=== PATIENT | female | born 1940 | race Caucasian/White ===

== ENCOUNTER 2016-07-19 15:47 | Outpatient (CLI) | payer MEDICARE, OTHER | END 2016-07-19 15:48 | disposition home or self-care (01) | DX: G47.33 Obstructive sleep apnea (adult) (pediatric) (principal) | CPT/HCPCS: 99213; G0463 ==

== ENCOUNTER 2017-03-21 15:40 | Outpatient (CLI) | payer MEDICARE, OTHER | END 2017-03-21 15:41 | disposition home or self-care (01) | LOC: SC 15:40 | PROVIDERS: ATTEND Nurse Practitioner Family | DX: G47.33 Obstructive sleep apnea (adult) (pediatric) (principal) | CPT/HCPCS: 99214; G0463; 99212 ==

== ENCOUNTER 2017-06-29 13:11 | Outpatient (CLI) | payer MEDICARE, OTHER | END 2017-06-29 13:12 | disposition home or self-care (01) | LOC: SC 13:11 | PROVIDERS: ATTEND Nurse Practitioner Family | DX: G47.33 Obstructive sleep apnea (adult) (pediatric) (principal) | CPT/HCPCS: 99214; G0463; 99212 ==

== ENCOUNTER 2018-06-12 12:38 | Outpatient (CLI) | payer MEDICARE, OTHER | END 2018-06-12 12:39 | disposition home or self-care (01) | LOC: SC 12:38 | PROVIDERS: ATTEND Nurse Practitioner Family | DX: G47.33 Obstructive sleep apnea (adult) (pediatric) (principal) | CPT/HCPCS: 99214; G0463; 99212 ==

== ENCOUNTER 2020-01-16 11:22 | Outpatient (CLI) | payer MEDICARE, OTHER ==
[2020-01-16 12:19] VITALS: BP 148/60
--- NOTE | 2020-01-16 12:19 | SLEEP CARE CONSULTATION ---
Information from patient questionnaire entered by Lorna Quinteros. I have reviewed and concur with the information entered by Lorna Quinteros. This document represents the service I personally performed and the decisions made by me, Yudelka Aleman, RN, MSN, ELECTRONIC SECURITY SPECIALIST. History of Present Illness Service Date and Time: 01/16/2020 1122 Previous diagnosis: Moderate, Obstructive Sleep Apnea-Hypopnea Syndrome AHI: 17.9 (in 2013) Reason for follow up: other (7 month with mask issues) Equipment type: CPAP Equipment obtained from: [employer] (getting supplies as needed) Mask style: Nasal Mask brand: Respironics (Dreamwear) Backup mask available: Yes (old mask) Last cushion change: 1st of month Prior sleep studies: Yes Year and Where: 2012 - [facility] Type of Sleep Study: Polysomnography CPAP Compliance Data - Data Reviewed with Patient Average duration of nightly device use: 9.4 Compliance rate %: 98 (180 days) Current pressure setting (cmH2O): 8-12 Humidity settin Average residual AHI: 0.6 Subjective Patient concerns: reports: mask leak noise (every time she turns she is waking to adjust mask and this also wakes her spouse). denies: aerophagia, mask discomfort, air blowing in eyes, condensation in mask/hose, nasal congestion, dry mouth, nose, throat, epistaxis, other Observed to snore while using device: No Current pressure setting perceived as: comfortable On therapy, patient: reports: sleeping better, awakening more refreshed, being more awake and alert during the day, more rested overall. denies: drowsiness while driving Initial [place] Sleepiness Scale score: 12 (in 2013) Current [place] Sleepiness Scale score: 0 Allergies and Home Medications Known drug allergies: Yes ( bees, IV iodine, tape, topical ointments) Home medication list reviewed: Yes (no changes stated) Review of Systems Review of systems same as previous: Yes Physical Exam Blood Pressure: 148/60 Cuff size: long Heart Rate: 69 O2 Saturation: 95 Height: 5 ft 3.5 in Weight: 203 lb Weight change since last visit: gained a few pounds Body Mass Index: 35.4 BMI Classification: Obese Impression and Plan 1. Obstructive Sleep Apnea-Hypopnea Syndrome, moderate, with good treatment compliance and good apnea control. On CPAP therapy, the patient has better sleep quality and is more rested overall. For her mask concerns, I showed her the headgear with arms and she would like to try. In addition, the cushion will be replaced with nasal cushions. She is to contact [facility] when she can obtain, if too far out in time she can consider out of pocket since current mask disrupting sleep. If she has not opened the mask package just recieved, she can see if [facility] will replace. Patient has gained weight and with discussion she would really like to lose weight and feels more motivated than at last visit. Currently patients BMI is 34.6 obesity class . Obesity increases the risk of apnea, CPAP pressure requirements and overall health risks especially cardiovascular and diabetes. Weight loss can be done with reducing portion size, reducing refined foods and balancing content with vegetables, fruit and protein. In addition tracking food intake will allow awareness of how to modify diet to achieve weight loss goals. Also eating more slowly will allow more awareness of food intake and enjoyment of food while assisting patient to modify intake at each meal. A diet consultation can be helpful in achieving optimal weight loss goals. The BMI chart was reviewed. The patient would like to reduce to 155 pounds bringing their BMI down to about 27. Patient encouraged to discuss their weight loss goals with their PCP and consider a referral to a supervisor print line. The patient's CPAP pressure range should accommodate some weight loss. Symptoms to report for additional pressure adjustment discussed. Patient's apnea severity and rationale for treatment to reduce apnea, improve sleep quality and reduce cardiovascular and cerebrovascular events was reviewed. I also reviewed the benefit of consistent device use of CPAP for hypertension. * Continue auto CPAP pressure at 8- 12 cmH2O * change mask headgear and cushion style * Notify me if snoring with mask or feeling that the pressure is too much or too little * Attempt to lose weight * Follow up with PCP for supervisor print line referral * Call this office if any problems using CPAP * Return for follow up in 1 year , or sooner if concerns arise Visit Type: In Office Time Spent with Patient (minutes): 30 Provider Statement: I spent 100% of the Face to Face Visit with the patient with greater than 50% spent counseling the patient and coordination of care.
== END 2020-01-16 11:23 | disposition home or self-care (01) ==
LOC: SC 11:22
PROVIDERS: ATTEND Nurse Practitioner Family
DX: G47.33 Obstructive sleep apnea (adult) (pediatric) (principal); E66.9 Obesity, unspecified; Z68.34 Body mass index [BMI] 34.0-34.9, adult
CPT/HCPCS: 99214; G0463; 99212

== ENCOUNTER 2021-01-19 08:58 | Outpatient (CLI) | payer MEDICARE, OTHER ==
[2021-01-19 09:51] VITALS: BP 135/66
--- NOTE | 2021-01-19 09:51 | SLEEP CARE CONSULTATION ---
Information from patient questionnaire entered by Teressa Fortune. I have reviewed and concur with the information entered by Teressa Fortune. This document represents the service I personally performed and the decisions made by me, Cecilia Medina ARNP. History of Present Illness Service Date and Time: 01/19/2021 0858 Previous diagnosis: Moderate, Obstructive Sleep Apnea-Hypopnea Syndrome AHI: 17.9 (in 2012) Reason for follow up: annual Equipment type: CPAP Equipment obtained from: [employer] (getting supplies as needed) Mask style: Nasal Backup mask available: No (will keep old mask when replaced) Last cushion change: 19 days ago Prior sleep studies: Yes Year and Where: 2012 - [facility] Type of Sleep Study: Polysomnography HPI additional information: TYRONE CUNHA was diagnosed to have moderate, AHI 17.9, obstructive sleep apnea-hypopnea syndrome and returned today for CPAP therapy annual follow-up. Sleep Study - Results Type of Sleep Study: Polysomnography Prior sleep studies: Yes Year and Where: [facility] CP[facility] Compliance Data - Data Reviewed with Patient Average duration of nightly device use: 9 hours 9 minutes Compliance rate %: 96 Current pressure setting (cmH2O): 8-12 Average residual AHI: 0.8 Central apnea: 0 Obstructive apnea: .7 Hypopnea: 0 Subjective Missed days of use due to: reports: other (smell in cpap for 1 week unable to use) Patient concerns: reports: dry mouth, nose, throat (dry throat, sometimes if she breathes through her mouth). denies: aerophagia, mask discomfort, air blowing in eyes, mask leak noise, condensation in mask/hose, nasal congestion, epistaxis, other Observed to snore while using device: No Current pressure setting perceived as: comfortable On therapy, patient: reports: sleeping better, awakening more refreshed, being more awake and alert during the day, more rested overall. denies: drowsiness while driving Initial [place] Sleepiness Scale score: 12 (in 2013) Current [place] Sleepiness Scale score: 10 Allergies and Home Medications Home medication list reviewed: Yes (Eliquis) Review of Systems Review of systems same as previous: Yes (no changes) Physical Exam Blood Pressure: 135/66 (left wrist) Cuff size: wrist Heart Rate: 68 O2 Saturation: 93 (on 2L/NC) Height: 5 ft 3.5 in Weight: 198 lb Weight change since last visit: 5 lb loss Body Mass Index: 34.5 BMI Classification: Obese Impression and Plan 1. Obstructive Sleep Apnea-Hypopnea Syndrome, moderate, with good treatment compliance and excellent apnea control. On CPAP therapy, the patient has better sleep quality and is more rested overall. Patient had an issue with a vinegar smell in her CPAP machine. She took it down to have it looked at by the DME and they replaced tubing and headgear. She cleaned the water chamber and then used it again. It had the smell again. She looked at the jug of distilled water and discovered it was vinegar. She then emptied, recleaned and put in distilled water. She has not had any odor issues since. Patient is very satisfied with current CPAP therapy and pressure settings. She has some occasional throat dryness possibly due to sleeping with mouth open. She was advised that she could switch to using a full face mask or chin strap if this should become more often and intrusive. She voiced understanding and agreement with plan. Patient has lost about 5 pounds. Currently patients BMI is 35.5. Patient is going to pulmonary therapy and has an appointment to meet with a dietitian to help with food choices. Obesity increases the risk of apnea, CPAP pressure requirements and overall health risks especially cardiovascular and diabetes. Thus patient is advised to continue to try to lose weight. The patient's CPAP pressure range should accommodate some weight loss. Symptoms to report for additional pressure adjustment discussed. Patient's apnea severity and rationale for treatment to reduce apnea, improve sleep quality and reduce cardiovascular and cerebrovascular events was reviewed. I also reviewed the benefit of consistent device use of CPAP for hypertension. * Continue auto CPAP pressure at 8-12 cmH2O * Notify me if snoring with mask or feeling that the pressure is too much or too little * Continue to try to lose weight * Call this office if any problems using CPAP * Return for follow up in 1 year, or sooner if concerns arise Counseling Topics: Spare mask, Weight loss health impact Visit Type: In Office Time Spent with Patient (minutes): 20 Provider Statement: I spent 100% of the Face to Face Visit with the patient with greater than 50% spent counseling the patient and coordination of care.
== END 2021-01-19 08:59 | disposition home or self-care (01) ==
LOC: SC 08:58
PROVIDERS: ATTEND Nurse Practitioner Family
DX: G47.33 Obstructive sleep apnea (adult) (pediatric) (principal); E66.9 Obesity, unspecified; Z68.34 Body mass index [BMI] 34.0-34.9, adult
CPT/HCPCS: 99213; G0463; 99212

== ENCOUNTER 2022-02-17 08:43 | Outpatient (CLI) | payer MEDICARE, OTHER ==
[2022-02-17 09:17] VITALS: BP 122/64
--- NOTE | 2022-02-17 09:17 | SLEEP CARE CONSULTATION ---
Information from patient questionnaire entered by Eugenio Berry. I have reviewed and concur with the information entered by Eugenio Berry. This document represents the service I personally performed and the decisions made by me, Cecilia Medina ARNP. History of Present Illness Service Date and Time: 02/17/2022 0843 Previous diagnosis: Moderate, Obstructive Sleep Apnea-Hypopnea Syndrome AHI: 17.9 (in 2012) Reason for follow up: annual (LAST SEEN 01/2021) Equipment type: CPAP (RESMED) Equipment obtained from: [employer] (getting supplies as needed) Mask style: Nasal Backup mask available: Yes (old mask) Last cushion change: 2 days ago Prior sleep studies: Yes Year and Where: 2012 - [facility] Type of Sleep Study: Polysomnography HPI additional information: TYRONE CUNHA was diagnosed to have moderate, AHI 17.9, obstructive sleep apnea-hypopnea syndrome and returned today for CPAP therapy annual follow-up. Sleep Study - Results Type of Sleep Study: Polysomnography Prior sleep studies: Yes Year and Where: 2012 - [facility] CPAP Compliance Data - Data Reviewed with Patient Average duration of nightly device use: 9 HRS 29 MIN Compliance rate %: 99 (08/19/2021-02/14/2022; 180/180 days used) Current pressure setting (cmH2O): 8-12 Average residual AHI: 0.3 Central apnea: 0.1 Obstructive apnea: 0.1 Average large leak: 2.2 lpm Subjective Missed days of use due to: reports: other (power outage) Patient concerns: denies: aerophagia, mask discomfort, air blowing in eyes, mask leak noise, condensation in mask/hose, nasal congestion, dry mouth, nose, throat, epistaxis Observed to snore while using device: No Current pressure setting perceived as: comfortable On therapy, patient: reports: sleeping better, awakening more refreshed, being more awake and alert during the day, more rested overall. denies: drowsiness while driving Initial [place] Sleepiness Scale score: 12 (in 2012) Current [place] Sleepiness Scale score: 1 (02/17/2022) Allergies and Home Medications Drug allergies reviewed: Yes (penicillin, contrast in xrays, topical ointments, bee stings) Home medication list reviewed: Yes (no changes) Review of Systems Review of systems same as previous: Yes (no changes) Physical Exam Vital signs obtained and entered by: EUGENIO Kovacs MA Blood Pressure: 122/64 (LEFT ARM) Cuff size: regular Heart Rate: 92 O2 Saturation: 94 Height: 5 ft 3.5 in Weight: 192 lb 3.2 oz Weight change since last visit: 6 lb loss Body Mass Index: 33.5 BMI Classification: Obese Impression and Plan 1. Obstructive Sleep Apnea-Hypopnea Syndrome, moderate, with good treatment compliance and good apnea control. On CPAP therapy, the patient has better sleep quality and is more rested overall. Patient has significant improvement of their sleep apnea and are satisfied with current CPAP therapy. Patient denies problems with oral dryness, nasal congestion, epistaxis, skin irritation or aerophagia. Patient's apnea severity and rationale for treatment to reduce apnea, improve sleep quality and reduce cardiovascular and cerebrovascular events was reviewed. I also reviewed the benefit of consistent device use of CPAP for hypertension. 2. Obesity, unspecified. Currently patients BMI is 33.5. Patient has been trying to lose weight with diet changes and has lost at least 6 pounds according to our records. Obesity increases the risk of apnea, CPAP pressure requirements and overall health risks especially cardiovascular and diabetes. Thus patient is advised to continue to try to lose weight. * Continue auto CPAP pressure at 8-12 cmH2O * Update supplies * Notify me if snoring with mask or feeling that the pressure is too much or too little * Continue to try to lose weight * Call this office if any problems using CPAP * Return for follow up in 1 year, or sooner if concerns arise Counseling Topics: Spare mask, Weight loss health impact Visit Type: In Office Time Spent with Patient (minutes): 20 Provider Statement: I spent 100% of the Face to Face Visit with the patient with greater than 50% spent counseling the patient and coordination of care.
== END 2022-02-17 08:44 | disposition home or self-care (01) ==
LOC: SC 08:43
PROVIDERS: ATTEND Nurse Practitioner Family
DX: G47.33 Obstructive sleep apnea (adult) (pediatric) (principal); E66.9 Obesity, unspecified; Z68.33 Body mass index [BMI] 33.0-33.9, adult
CPT/HCPCS: 99213; G0463; 99212

== ENCOUNTER 2023-02-17 08:55 | Outpatient (CLI) | payer MEDICARE, OTHER ==
--- NOTE | 2023-02-17 09:46 | Sleep Patient Instructions ---
Sleep Center Visit Summary - Patient Visit Information Reason for Visit: Annual Visit - Patient Instructions Additional Instructions: You will continue with CPAP therapy with pressure set at 8-12 cmH2O. A supply prescription will be updated with your DME. I have added to update your machine since your CPAP is over 5 years old. Please call us to schedule a compliance visit once you have the new CPAP. We encourage you to continue to try to lose weight. Please follow up with the sleep care office one month after obtaining new CPAP. - Clinic Information Contact: [facility] [address] [place] [address] [email or web address] T: [phone]
--- NOTE | 2023-02-17 09:51 | SLEEP CARE CONSULTATION ---
Information from patient questionnaire entered by Preet Camacho. I have reviewed and concur with the information entered by Preet Camacho. This document represents the service I personally performed and the decisions made by me, Cecilia Medina ARNP. History of Present Illness Service Date and Time: 02/17/2023 0855 Previous diagnosis: Moderate, Obstructive Sleep Apnea-Hypopnea Syndrome AHI: 17.9 (in 2012) Reason for follow up: annual (Last seen 02/2022) Equipment type: CPAP (RESMED 10, s/u 05/2017) Equipment obtained from: [employer] (getting supplies as needed) Mask style: Nasal Backup mask available: Yes (old mask) Last cushion change: on Prior sleep studies: Yes Year and Where: 2012 - [facility] Type of Sleep Study: Polysomnography HPI additional information: TYRONE CUNHA was diagnosed to have moderate, AHI 17.9, obstructive sleep apnea-hypopnea syndrome and returned today for CPAP therapy annual follow-up. Sleep Study - Results Type of Sleep Study: Polysomnography Prior sleep studies: Yes Year and Where: 2012 - [facility] CPAP Compliance Data - Data Reviewed with Patient Average duration of nightly device use: 9 hours 7 minutes Compliance rate %: 26 (CPAP stopped transmitting in May) Current pressure setting (cmH2O): 8-12 Average residual AHI: 0.3 On Oxygen: Yes (2 L) Oxygen usage: Nocturnal (and as needed during the day) Compliance data discussion: She says the pressure is not feeling the same and she cannot get into the menu on her machine like she used to be able to do. Subjective Missed days of use due to: reports: illness Patient concerns: reports: dry mouth, nose, throat (dry mouth, throat). denies: aerophagia, mask discomfort, air blowing in eyes, mask leak noise, condensation in mask/hose, nasal congestion, epistaxis Observed to snore while using device: No Current pressure setting perceived as: comfortable On therapy, patient: reports: sleeping better, awakening more refreshed, being more awake and alert during the day, more rested overall. denies: drowsiness while driving Initial [place] Sleepiness Scale score: 12 (in 2012) Current [place] Sleepiness Scale score: 0 Allergies and Home Medications Known drug allergies: Yes (as listed) Drug allergies reviewed: Yes Home medication list reviewed: Yes (see updated list in EMR) Allergy and home medication list: Allergies Penicillins Allergy (Verified 02/16/23 13:31) BEE STINGS Allergy (Uncoded 02/16/23 13:31) CONTRAST DIES Allergy (Uncoded 02/16/23 13:31) TOPICAL OINTMENTS Allergy (Uncoded 02/16/23 13:31) Review of Systems Review of systems same as previous: No (Heart failure; heart cath, blood transfusion x 2; Hosp Jan 2023) Physical Exam Vital signs obtained and entered by: Cecilia Juarez NP Blood Pressure: 121/59 Cuff size: wrist (left) Heart Rate: 76 O2 Saturation: 90 Height: 5 ft 3.5 in Weight: 164 lb 12.8 oz Weight change since last visit: 28 lb loss; using GOLO Body Mass Index: 28.7 BMI Classification: Overweight Impression and Plan 1. Obstructive Sleep Apnea-Hypopnea Syndrome, moderate, with good treatment compliance and good apnea control. On CPAP therapy, the patient has better sleep quality and is more rested overall. The patients CPAP is over 5 years old and of reasonable use. In addition, it's pressure is not adequate and cannot get into menu, a sign of malfunction. Thus, the CPAP will be updated. The new CPAPs also have a better humidity system which could assist control of patients dryness symptoms. A DWO prescription will be made. Compliance guidelines for new device and follow up discussed. Patient's apnea severity and rationale for rajesh tment to reduce apnea, improve sleep quality and reduce cardiovascular and cerebrovascular events was reviewed. I also reviewed the benefit of consistent device use of CPAP for cardiac disease (HF), cerebrovascular disease (TIA), arrhythmia (AFib), diabetes and depression. 2. Overweight, unspecified. Currently patients BMI is 28.7. She has been using GOLO and losing weight. Obesity increases the risk of apnea, CPAP pressure requirements and overall health risks especially cardiovascular and diabetes. Thus patient is advised to continue to try to lose weight. * Continue auto CPAP pressure at 8-12 cmH2O * Update machine * Update supply prescription * Notify me if snoring with mask or feeling that the pressure is too much or too little * Attempt to lose weight * Call this office if any problems using CPAP * Return for follow up one month after obtaining new device, or sooner if concerns arise Counseling Topics: Spare mask, Weight loss health impact Prescriptions: Auto CPAP Visit Type: In Office Patient Location: Office Location of Provider: Office Time Spent with Patient (minutes): 28 Provider Statement: I spent 100% of the Face to Face Visit with the patient with greater than 50% spent counseling the patient and coordination of care.
[2023-02-17 09:52] VITALS: BP 121/59; O2SAT 90
== END 2023-02-17 08:56 | disposition home or self-care (01) ==
LOC: SC 08:55
PROVIDERS: ATTEND Nurse Practitioner Family
DX: G47.33 Obstructive sleep apnea (adult) (pediatric) (principal); E66.3 Overweight; Z68.28 Body mass index [BMI] 28.0-28.9, adult
CPT/HCPCS: 99213; G0463; 99212